=== PATIENT | female | born 1965 | race Caucasian/White ===

== ENCOUNTER 2024-09-19 10:03 | Day surgery (SDC) | payer MEDICARE ==
[2024-09-19] MEDS ORDERED: Sodium Chloride 0.9(Preservative Free) 10 ML IJ ONE (10:04)
[2024-09-19] MEDS ORDERED: Depo-Medrol 40 MG/ML IM ONE (10:04)
[2024-09-19] MEDS ORDERED: propofoL IV ONE (12:31)
--- NOTE | 2024-09-19 13:41 | XRAY ---
Indication: Caudal CONSTANTINE. Intraoperative fluoroscopy provided for 16 seconds. 2 digital spot images submitted for interpretation demonstrates caudal needle tip projecting mid sacrum. Small amount of contrast injected for needle tip placement. Correlate with intraoperative findings/report.
--- NOTE | 2024-09-19 14:43 | XRAY ---
16 seconds of fluoroscopy was used in surgery for a caudal CONSTANTINE.
== END 2024-09-19 12:55 | disposition home or self-care (01) ==
LOC: SDC-PAIN 10:03
PROVIDERS: ATTEND Psychiatry & Neurology Pain Medicine
DX: M54.16 Radiculopathy, lumbar region (principal); E11.9 Type 2 diabetes mellitus without complications
CPT/HCPCS: 62323; 72220; 77003; 82947; J2704; Q9966

== ENCOUNTER 2024-10-18 15:10 | Day surgery (SDC) | payer MEDICARE ==
[2024-10-18] MEDS ORDERED: LIDOCAINE HCL 1% AMPUL 5 ML IJ ONE (15:11)
--- NOTE | 2024-10-19 18:03 | XRAY ---
8 seconds of fluoroscopy was used in surgery for an attempted left intra-articular hip and greater trochanteric bursa injection. The patient was unable to tolerate the procedure resulting in it being cancelled.
== END 2024-10-18 17:50 | disposition home or self-care (01) ==
LOC: SDC-PAIN 15:10
PROVIDERS: ATTEND Psychiatry & Neurology Pain Medicine
DX: M16.12 Unilateral primary osteoarthritis, left hip (principal); E11.9 Type 2 diabetes mellitus without complications
CPT/HCPCS: 20610; 77002; 82947; Q9966

== ENCOUNTER 2024-10-24 09:26 | Day surgery (SDC) | payer MEDICARE ==
[2024-10-24] MEDS ORDERED: BUPIVACAINE 0.5% VIAL IJ ONE (09:27)
[2024-10-24] MEDS ORDERED: Depo-Medrol 40 MG/ML IM ONE (09:27)
[2024-10-24] MEDS ORDERED: propofoL IV ONE (11:56)
[2024-10-24] MEDS ORDERED: Lactated Ringers 1,000 ML IV ONE (12:36)
--- NOTE | 2024-10-24 12:53 | XRAY ---
Indication: Left hip and greater trochanter bursa injection. Intraoperative fluoroscopy provided for 21 seconds. 2 digital spot image submitted for interpretation demonstrates needle tips projecting lateral to left femur neck and greater trochanter. Small amount of contrast injected for both needle tip placement. Correlate with intraoperative findings/report.
--- NOTE | 2024-10-24 12:53 | XRAY ---
21 seconds of fluoroscopy were used in surgery for a left intra-articular hip injection and a left greater trochanteric bursa injection.
== END 2024-10-24 12:35 | disposition home or self-care (01) ==
LOC: SDC-PAIN 09:26
PROVIDERS: ATTEND Psychiatry & Neurology Pain Medicine
DX: M16.12 Unilateral primary osteoarthritis, left hip (principal); E11.9 Type 2 diabetes mellitus without complications
CPT/HCPCS: 20610; 73502; 77002; 82947; J2704; Q9966